=== PATIENT | female | born 1980 | race Two or more races ===

== ENCOUNTER 2018-06-10 20:13 | Emergency (ER) | payer OTHER ==
[~2018-06-10] VITALS: Ht 162.6 cm; Wt 63.0 kg
[2018-06-11] MEDS ORDERED: CIPRO500 MG PO (04:30)
[2018-06-11] MEDS ORDERED: METRONIDAZOLE500 MG PO (04:30)
[2018-06-11] MEDS ORDERED: INTESTINEX680 M1 PO (04:30)
[2018-06-11] MEDS ORDERED: LEVSIN/SL0.125 MG PO (04:30)
== END 2018-06-11 06:38 | disposition home or self-care (01) ==
LOC: ER 20:13
DX: K52.9 Noninfective gastroenteritis and colitis, unspecified (principal)